=== PATIENT | male | born 1970 | race Caucasian/White ===

== ENCOUNTER 2024-11-13 03:57 | Day surgery (SDC) | payer OTHER ==
[2024-11-13] MEDS ORDERED: Lidocaine HCl 4% Cream 5 GM ONE (13:14)
== END 2024-11-13 23:00 | disposition home or self-care (01) ==
LOC: WOUND 03:57
DX: E11.621 Type 2 diabetes mellitus with foot ulcer (principal); L97.512 Non-pressure chronic ulcer of other part of right foot with fat layer exposed; E11.42 Type 2 diabetes mellitus with diabetic polyneuropathy; E11.51 Type 2 diabetes mellitus with diabetic peripheral angiopathy without gangrene; I87.2 Venous insufficiency (chronic) (peripheral); I10 Essential (primary) hypertension
CPT/HCPCS: A9270

== ENCOUNTER 2024-11-30 03:13 | Day surgery (SDC) | payer OTHER | END 2024-11-30 23:00 | disposition home or self-care (01) | LOC: WOUND 03:13 | DX: L89.894 Pressure ulcer of other site, stage 4 (principal); E11.42 Type 2 diabetes mellitus with diabetic polyneuropathy ==

== ENCOUNTER 2024-12-07 03:43 | Day surgery (SDC) | payer OTHER ==
[2024-12-07] MEDS ORDERED: Lidocaine HCl 4% Cream 5 GM ONE (11:33)
== END 2024-12-07 23:00 | disposition home or self-care (01) ==
LOC: WOUND 03:43
DX: E11.621 Type 2 diabetes mellitus with foot ulcer (principal); L97.515 Non-pressure chronic ulcer of other part of right foot with muscle involvement without evidence of necrosis; E11.42 Type 2 diabetes mellitus with diabetic polyneuropathy
CPT/HCPCS: A9270; G0463

== ENCOUNTER 2024-12-14 04:36 | Day surgery (SDC) | payer OTHER ==
[2024-12-14] MEDS ORDERED: Lidocaine HCl 4% Cream 5 GM ONE (11:43)
== END 2024-12-14 23:00 | disposition home or self-care (01) ==
LOC: WOUND 04:36
DX: E11.621 Type 2 diabetes mellitus with foot ulcer (principal); L97.413 Non-pressure chronic ulcer of right heel and midfoot with necrosis of muscle; E11.42 Type 2 diabetes mellitus with diabetic polyneuropathy
CPT/HCPCS: A9270

== ENCOUNTER 2024-12-21 04:09 | Day surgery (SDC) | payer OTHER ==
[2024-12-21] MEDS ORDERED: Lidocaine HCl 4% Cream 5 GM ONE (11:23)
== END 2024-12-21 23:00 | disposition home or self-care (01) ==
LOC: WOUND 04:09
DX: E11.621 Type 2 diabetes mellitus with foot ulcer (principal); L97.415 Non-pressure chronic ulcer of right heel and midfoot with muscle involvement without evidence of necrosis; E11.42 Type 2 diabetes mellitus with diabetic polyneuropathy
CPT/HCPCS: A9270; G0463

== ENCOUNTER 2024-12-31 01:44 | Day surgery (SDC) | payer OTHER ==
[2024-12-31] MEDS ORDERED: Lidocaine HCl 4% Cream 5 GM ONE (14:10)
[2024-12-31] MEDS ORDERED: Silver Nitr/Potassium Nitrate 1 EA APPL ONE (14:47)
== END 2024-12-31 23:00 | disposition home or self-care (01) ==
LOC: WOUND 01:44
DX: E11.621 Type 2 diabetes mellitus with foot ulcer (principal); L97.515 Non-pressure chronic ulcer of other part of right foot with muscle involvement without evidence of necrosis; E11.42 Type 2 diabetes mellitus with diabetic polyneuropathy
CPT/HCPCS: A9270

== ENCOUNTER 2025-01-11 00:44 | Day surgery (SDC) | payer OTHER ==
[2025-01-11] MEDS ORDERED: Lidocaine HCl 4% Cream 5 GM ONE (15:54)
== END 2025-01-11 23:00 | disposition home or self-care (01) ==
LOC: WOUND 00:44
DX: E11.621 Type 2 diabetes mellitus with foot ulcer (principal); L97.515 Non-pressure chronic ulcer of other part of right foot with muscle involvement without evidence of necrosis; E11.42 Type 2 diabetes mellitus with diabetic polyneuropathy
CPT/HCPCS: A9270; G0463

== ENCOUNTER 2025-01-22 04:03 | Day surgery (SDC) | payer OTHER ==
[2025-01-22] MEDS ORDERED: Lidocaine HCl 4% Cream 5 GM ONE (14:04)
== END 2025-01-22 23:00 | disposition home or self-care (01) ==
LOC: WOUND 04:03
DX: E11.621 Type 2 diabetes mellitus with foot ulcer (principal); L97.513 Non-pressure chronic ulcer of other part of right foot with necrosis of muscle; E11.42 Type 2 diabetes mellitus with diabetic polyneuropathy
CPT/HCPCS: A9270

== ENCOUNTER 2025-02-03 01:04 | Day surgery (SDC) | payer OTHER ==
[2025-02-03] MEDS ORDERED: Lidocaine HCl 4% Cream 5 GM ONE (08:55)
== END 2025-02-03 23:00 | disposition home or self-care (01) ==
LOC: WOUND 01:04
DX: E11.621 Type 2 diabetes mellitus with foot ulcer (principal); L97.515 Non-pressure chronic ulcer of other part of right foot with muscle involvement without evidence of necrosis; E11.42 Type 2 diabetes mellitus with diabetic polyneuropathy
CPT/HCPCS: A9270; G0463

== ENCOUNTER 2025-02-16 00:17 | Day surgery (SDC) | payer OTHER ==
[2025-02-16] MEDS ORDERED: Lidocaine HCl 4% Cream 5 GM ONE (13:36)
== END 2025-02-16 23:08 | disposition home or self-care (01) ==
LOC: WOUND 00:17
DX: E11.621 Type 2 diabetes mellitus with foot ulcer (principal); L97.515 Non-pressure chronic ulcer of other part of right foot with muscle involvement without evidence of necrosis; E11.42 Type 2 diabetes mellitus with diabetic polyneuropathy
CPT/HCPCS: A9270

== ENCOUNTER 2025-02-26 04:12 | Day surgery (SDC) | payer OTHER ==
[2025-02-26] MEDS ORDERED: Lidocaine HCl 4% Cream 5 GM ONE (13:09)
== END 2025-02-26 23:00 | disposition home or self-care (01) ==
LOC: WOUND 04:12
DX: E11.621 Type 2 diabetes mellitus with foot ulcer (principal); L97.515 Non-pressure chronic ulcer of other part of right foot with muscle involvement without evidence of necrosis; E11.42 Type 2 diabetes mellitus with diabetic polyneuropathy
CPT/HCPCS: A9270

== ENCOUNTER 2025-03-05 00:22 | Day surgery (SDC) | payer OTHER ==
[2025-03-05] MEDS ORDERED: Lidocaine HCl 4% Cream 5 GM ONE (10:03)
== END 2025-03-05 23:00 | disposition home or self-care (01) ==
LOC: WOUND 00:22
DX: E11.621 Type 2 diabetes mellitus with foot ulcer (principal); L97.515 Non-pressure chronic ulcer of other part of right foot with muscle involvement without evidence of necrosis; L89.893 Pressure ulcer of other site, stage 3; E11.42 Type 2 diabetes mellitus with diabetic polyneuropathy
CPT/HCPCS: A9270

== ENCOUNTER 2025-03-12 03:49 | Day surgery (SDC) | payer OTHER ==
[2025-03-12] MEDS ORDERED: Lidocaine HCl 4% Cream 5 GM ONE (13:48)
[2025-03-12] MEDS ORDERED: Silver Nitr/Potassium Nitrate 1 EA APPL ONE (14:44)
== END 2025-03-12 23:00 | disposition home or self-care (01) ==
LOC: WOUND 03:49
DX: E11.621 Type 2 diabetes mellitus with foot ulcer (principal); L97.513 Non-pressure chronic ulcer of other part of right foot with necrosis of muscle; L89.893 Pressure ulcer of other site, stage 3; E11.42 Type 2 diabetes mellitus with diabetic polyneuropathy
CPT/HCPCS: A6196; A9270

== ENCOUNTER 2025-03-18 01:59 | Day surgery (SDC) | payer OTHER ==
[2025-03-18] MEDS ORDERED: Lidocaine HCl 4% Cream 5 GM ONE (11:03)
== END 2025-03-18 23:00 | disposition home or self-care (01) ==
LOC: WOUND 01:59
DX: E11.621 Type 2 diabetes mellitus with foot ulcer (principal); L97.512 Non-pressure chronic ulcer of other part of right foot with fat layer exposed; E11.42 Type 2 diabetes mellitus with diabetic polyneuropathy
CPT/HCPCS: A9270

== ENCOUNTER 2025-04-12 03:26 | Day surgery (SDC) | payer OTHER ==
[2025-04-12] MEDS ORDERED: Lidocaine HCl 4% Cream 5 GM ONE (15:15)
[2025-04-12] MEDS ORDERED: Silver Nitr/Potassium Nitrate 1 EA APPL ONE (15:43)
== END 2025-04-12 23:22 | disposition home or self-care (01) ==
LOC: WOUND 03:26
DX: E11.621 Type 2 diabetes mellitus with foot ulcer (principal); L97.513 Non-pressure chronic ulcer of other part of right foot with necrosis of muscle; L89.893 Pressure ulcer of other site, stage 3; E11.42 Type 2 diabetes mellitus with diabetic polyneuropathy
CPT/HCPCS: A9270

== ENCOUNTER 2025-05-12 03:03 | Day surgery (SDC) | payer OTHER ==
[2025-05-12] MEDS ORDERED: Lidocaine HCl 4% Cream 5 GM ONE (13:10)
== END 2025-05-12 23:00 | disposition home or self-care (01) ==
LOC: WOUND 03:03
DX: L89.893 Pressure ulcer of other site, stage 3 (principal); E11.621 Type 2 diabetes mellitus with foot ulcer; E11.42 Type 2 diabetes mellitus with diabetic polyneuropathy
CPT/HCPCS: A9270; G0463

== ENCOUNTER 2025-06-01 02:49 | Day surgery (SDC) | payer OTHER ==
[2025-06-01] MEDS ORDERED: Lidocaine HCl 4% Cream 5 GM ONE (13:14)
== END 2025-06-01 23:00 | disposition home or self-care (01) ==
LOC: WOUND 02:49
DX: E11.621 Type 2 diabetes mellitus with foot ulcer (principal); L97.515 Non-pressure chronic ulcer of other part of right foot with muscle involvement without evidence of necrosis; E11.42 Type 2 diabetes mellitus with diabetic polyneuropathy
CPT/HCPCS: A9270; G0463

== ENCOUNTER 2025-06-18 06:12 | Day surgery (SDC) | payer OTHER ==
[2025-06-18] MEDS ORDERED: Lidocaine HCl 4% Cream 5 GM ONE (12:53)
== END 2025-06-18 23:00 | disposition home or self-care (01) ==
LOC: WOUND 06:12
DX: E11.621 Type 2 diabetes mellitus with foot ulcer (principal); L89.893 Pressure ulcer of other site, stage 3; L97.515 Non-pressure chronic ulcer of other part of right foot with muscle involvement without evidence of necrosis; E11.42 Type 2 diabetes mellitus with diabetic polyneuropathy
CPT/HCPCS: A9270

== ENCOUNTER 2025-07-02 04:26 | Day surgery (SDC) | payer OTHER ==
[2025-07-02] MEDS ORDERED: Lidocaine HCl 4% Cream 5 GM ONE (14:45)
== END 2025-07-02 23:00 | disposition home or self-care (01) ==
LOC: WOUND 04:26
DX: E11.621 Type 2 diabetes mellitus with foot ulcer (principal); L97.515 Non-pressure chronic ulcer of other part of right foot with muscle involvement without evidence of necrosis; E11.42 Type 2 diabetes mellitus with diabetic polyneuropathy
CPT/HCPCS: A9270; G0463

== ENCOUNTER 2025-07-23 01:11 | Day surgery (SDC) | payer OTHER | END 2025-07-23 23:00 | disposition home or self-care (01) | LOC: WOUND 01:11 | DX: E11.621 Type 2 diabetes mellitus with foot ulcer (principal); L97.511 Non-pressure chronic ulcer of other part of right foot limited to breakdown of skin; E11.42 Type 2 diabetes mellitus with diabetic polyneuropathy ==

== ENCOUNTER 2025-08-26 02:12 | Day surgery (SDC) | payer OTHER ==
[2025-08-26] MEDS ORDERED: Lidocaine HCl 4% Cream 5 GM ONE (14:23)
== END 2025-08-26 23:00 | disposition home or self-care (01) ==
LOC: WOUND 02:12
DX: E11.621 Type 2 diabetes mellitus with foot ulcer (principal); L97.511 Non-pressure chronic ulcer of other part of right foot limited to breakdown of skin; E11.42 Type 2 diabetes mellitus with diabetic polyneuropathy
CPT/HCPCS: A9270

== ENCOUNTER 2025-11-12 06:48 | Day surgery (SDC) | payer OTHER | END 2025-11-12 23:00 | disposition home or self-care (01) | LOC: WOUND 06:48 | DX: E11.621 Type 2 diabetes mellitus with foot ulcer (principal); L97.512 Non-pressure chronic ulcer of other part of right foot with fat layer exposed; E11.42 Type 2 diabetes mellitus with diabetic polyneuropathy; I10 Essential (primary) hypertension | CPT/HCPCS: G0463 ==